=== PATIENT | female | born 1960 | race African-American/Black ===

== ENCOUNTER 2024-12-17 09:05 | Inpatient (IN) | payer OTHER ==
[~2024-12-17] VITALS: Ht 170.2 cm; Wt 108.9 kg
[2024-12-17] VITALS (9 sets, daily range): BP systolic 101–119; BP diastolic 69–74; TEMP 97.9–98.2; O2SAT 92–99
[2024-12-17] MEDS: ALBUTEROL FS 2.5 MG/3 ML VIAL.NEB NEB ONE (09:19)
[2024-12-17] MEDS: IPRATROPIUM NEB FS 0.5 MG/2.5 ML AMPUL.NEB NEB ONE (09:19)
[2024-12-17] MEDS ORDERED: IPRATROPIUM NEB FS 0.5 MG/2.5 ML AMPUL.NEB ONE (09:21)
[2024-12-17] MEDS ORDERED: ALBUTEROL FS 2.5 MG/3 ML VIAL.NEB ONE (09:21)
[2024-12-17] MEDS: IV NS 0.9% 500 ML BAG IV ONE (09:26)
[2024-12-17] MEDS ORDERED: MORPHINE SULFATE INJ 2 MG/ML DISP.SYRIN ONE (09:32)
[2024-12-17 09:37] LABS: PLATELET COUNT (AUTO) 201 K/uL (150-450); RED BLOOD CELL COUNT(AUTO) 5.82 MIL/uL (4.0-5.2); RED CELL DISTRIBUTION WIDTH 18.2 % (11.5-15.0); WHITE BLOOD COUNT (AUTO) 10.4 K/uL (4.3-11.0)
[2024-12-17] MEDS: MORPHINE SULFATE INJ 2 MG/ML DISP.SYRIN IV ONE (09:38)
[2024-12-17 09:48] LABS: CALCIUM, SERUM 9.0 mg/dL (8.5-10.1); CREATININE 1.0 mg/dL (0.6-1.3); SODIUM SERUM 140 mmol/L (136-145); UREA NITROGEN, BLOOD 18 mg/dL (7-18)
[2024-12-17 09:50] LABS: INR 1.06 (0.91-1.10)
[2024-12-17 09:54] LABS: LACTIC ACID 2.7 mmol/L (0.4-2.0)
[2024-12-17 09:59] LABS: ASPARTATE AMINOTRANSFERASE 12 U/L (15-37); NT-PRO BNP 22 pg/mL (0-125); TOTAL PROTEIN, SERUM 7.2 g/dL (6.4-8.2)
[2024-12-17] MEDS ORDERED: IOHEXOL-350 100 ML VIAL IV ONE (10:40)
[2024-12-17] MEDS ORDERED: IV NS 0.9% 250 ML IV ONE (10:40)
[2024-12-17] MEDS ORDERED: BLACK SEED OIL PO (11:30)
[2024-12-17] MEDS ORDERED: METO25TA20 PO (11:30)
[2024-12-17] MEDS ORDERED: CHOL200010 PO (11:30)
[2024-12-17] MEDS ORDERED: ASCO100031 PO (11:30)
[2024-12-17] MEDS ORDERED: LOSARTAN POTASSIUM PO (11:30)
[2024-12-17] MEDS ORDERED: OIL OF OREGANO PO (11:30)
[2024-12-17] MEDS ORDERED: UBRO100T PO (11:30)
[2024-12-17] MEDS ORDERED: LEVE100023 PO (11:30)
[2024-12-17] MEDS ORDERED: LACT1CAP71 PO (11:30)
[2024-12-17] MEDS ORDERED: ALBU18HF2 IH (11:30)
[2024-12-17] MEDS ORDERED: ENOXAPARIN SODIUM 30 MG/0.3 ML DISP.SYRIN ONE (11:51)
[2024-12-17] MEDS ORDERED: ENOXAPARIN SODIUM 80 MG/0.8 ML DISP.SYRIN SQ ONE (11:51)
[2024-12-17] MEDS: ENOXAPARIN SODIUM 100 MG/ML DISP.SYRIN SQ SCH ×2 (11:57→20:29)
[2024-12-17] MEDS ORDERED: MORPHINE SULFATE INJ 2 MG/ML DISP.SYRIN IV PRN (14:00)
[2024-12-17] MEDS ORDERED: Z GUARD REMEDY 4 OZ OINT TP PRN (14:00)
[2024-12-17] MEDS ORDERED: Medication Not On Formulary EA (Ubrogepant (Ubrelvy) 100 MG) PO PRN (14:00)
[2024-12-17] MEDS: HYDROCODONE/APAP 10/325MG TABLET PO PRN (14:49)
[2024-12-17] MEDS: ALBUTEROL FS 2.5 MG/3 ML VIAL.NEB NEB PRN (15:54)
[2024-12-17] MEDS: LEVETIRACETAM (250 MG) 250 MG TABLET PO SCH (16:45)
[2024-12-17] MEDS: ONDANSETRON HCL/PF 4 MG/2 ML VIAL IVP PRN (16:46)
[2024-12-17] MEDS: METOPROLOL TARTRATE 25 MG TABLET PO SCH (16:46)
[2024-12-17] MEDS ORDERED: POTASSIUM CHLORIDE 20 MEQ TAB.PRT.SR PO ONE (20:00)
[2024-12-17] MEDS: POTASSIUM CHLORIDE 20 MEQ TAB.PRT.SR PO ONE (20:29)
[2024-12-18] VITALS: BP 118/67; TEMP 98.2; O2SAT 100
[2024-12-18 04:00] VITALS: BP 104/58; TEMP 98.2; O2SAT 99
[2024-12-18 06:47] LABS: PLATELET COUNT (AUTO) 210 K/uL (150-450); RED BLOOD CELL COUNT(AUTO) 5.32 MIL/uL (4.0-5.2); RED CELL DISTRIBUTION WIDTH 18.0 % (11.5-15.0); WHITE BLOOD COUNT (AUTO) 7.7 K/uL (4.3-11.0)
[2024-12-18] MEDS: MAGNESIUM HYDROXIDE 30 ML UDC PO PRN (07:24)
[2024-12-18 07:29] LABS: CALCIUM, SERUM 9.0 mg/dL (8.5-10.1); CREATININE 0.7 mg/dL (0.6-1.3); PHOSPHORUS 3.0 mg/dL (2.5-4.9); SODIUM SERUM 140.0 mmol/L (136-145); UREA NITROGEN, BLOOD 12.0 mg/dL (7-18)
[2024-12-18 08:45] VITALS: BP 103/62; TEMP 97.7; O2SAT 96
[2024-12-18 16:13] VITALS: BP 105/66; TEMP 98.1; O2SAT 98
[2024-12-18] MEDS: APIXABAN 5 MG TABLET PO SCH (16:38)
[2024-12-18] MEDS: MAG HYDROX/AL HYDROX/SIMETH 30 ML UDC PO PRN (17:36)
[2024-12-18 20:00] VITALS: BP 94/59; TEMP 97.7; O2SAT 97
[2024-12-19] VITALS: BP 97/59; TEMP 97.5; O2SAT 90
[2024-12-19 04:00] VITALS: BP 107/72; TEMP 97.9; O2SAT 95
[2024-12-19 08:00] VITALS: BP 103/71; TEMP 98.2; O2SAT 98
[2024-12-19 11:30] VITALS: BP 122/82; TEMP 98.6; O2SAT 100
[2024-12-19] MEDS: LACTULOSE 10 G/15 ML UDC (PYXIS) PO ONE (13:42)
[2024-12-19] MEDS: DOCUSATE SODIUM 100 MG CAPSULE PO SCH (13:42)
[2024-12-19 16:00] VITALS: BP 114/72; TEMP 98.1; O2SAT 95
[2024-12-19 20:00] VITALS: BP 104/63; TEMP 98.4; O2SAT 100
[2024-12-19] MEDS: NA PHOS,M-B/NA PHOS,DI-BA 1 EA ENEMA RC ONE (21:35)
[2024-12-20] VITALS: BP 100/71; TEMP 97.9; O2SAT 96
[2024-12-20 04:00] VITALS: BP 110/74; TEMP 98.1; O2SAT 95
[2024-12-20 07:30] VITALS: BP 115/82; TEMP 97.9; O2SAT 92
[2024-12-20] MEDS ORDERED: IOHEXOL-300 100 ML VIAL IV ONE (09:00)
[2024-12-20] MEDS ORDERED: IV NS 0.9% 250 ML IV ONE (09:01)
[2024-12-20 16:00] VITALS: BP 115/55; TEMP 97.3; O2SAT 94
[2024-12-20 20:00] VITALS: BP 101/56; TEMP 97.9; O2SAT 95
[2024-12-21 05:10] LABS: CANCER AG, 15-3 11.6 U/mL (0.0-25.0); CARCINOEMBRYONIC ANTIGEN (CEA) 2.0 ng/mL (0.0-4.7)
[2024-12-21 07:34] LABS: PLATELET COUNT (AUTO) 242 K/uL (150-450); RED BLOOD CELL COUNT(AUTO) 5.54 MIL/uL (4.0-5.2); RED CELL DISTRIBUTION WIDTH 18.8 % (11.5-15.0); WHITE BLOOD COUNT (AUTO) 8.1 K/uL (4.3-11.0)
[2024-12-21 09:02] VITALS: BP 112/54; TEMP 97.9; O2SAT 97
[2024-12-21 09:12] LABS: HOMOCYSTEINE, PLASMA 15.0 umol/L (0.0-17.2)
[2024-12-21 16:15] VITALS: BP 109/69; TEMP 98.1; O2SAT 93
[2024-12-21 20:00] VITALS: BP 101/64; TEMP 97.7; O2SAT 96
[2024-12-22 07:30] VITALS: BP 134/75; TEMP 97.9; O2SAT 94
[2024-12-22 10:37] LABS: ABG BASE EXCESS -0.1 mmol/L (-2.0-3.0); ABG OXYGEN SATURATION 92.1 % (94.0-98.0); ABG PCO2 42.1 mmHg (32.0-45.0); ABG PH 7.391 (7.350-7.450); ABG PO2 65.4 mmHg (83.0-108.0); ABG TOTAL HEMOGLOBIN 14.1 G/dL (12.0-16.0); FLOW, BLOOD GAS 0.00 L/min (0.00-30.00); FRACTIONATED INSPIRED OXYGEN 21.0 %; SITE, ABG LEFT RADIAL
[2024-12-22 10:42] LABS: PLATELET COUNT (AUTO) 260 K/uL (150-450); RED BLOOD CELL COUNT(AUTO) 5.55 MIL/uL (4.0-5.2); RED CELL DISTRIBUTION WIDTH 18.6 % (11.5-15.0); WHITE BLOOD COUNT (AUTO) 7.9 K/uL (4.3-11.0)
[2024-12-22 10:48] LABS: CALCIUM, SERUM 8.7 mg/dL (8.5-10.1); CREATININE 0.9 mg/dL (0.6-1.3); SODIUM SERUM 138.0 mmol/L (136-145); UREA NITROGEN, BLOOD 16.0 mg/dL (7-18)
[2024-12-22] MEDS: FUROSEMIDE 40 MG/4 ML VIAL IV ONE (17:12)
[2024-12-22 17:28] LABS: APPEARANCE,URINE CLOUDY (CLEAR); BLOOD, URINE 3+ Ery/uL (NEGATIVE); LEUKOCYTE ESTERASE ,URINE NEGATIVE (NEGATIVE); NITRITE, URINE NEGATIVE (NEGATIVE); UGLUCOSE NEGATIVE (NEGATIVE)
[2024-12-22 17:36] LABS: ADD URINE CULTURE YES; SQUAMOUS EPITHELIAL CELL,UR Few /HPF (None Seen)
[2024-12-22] MEDS: CALAMINE 118 ML BOTTLE TP PRN (17:53)
[2024-12-22 20:00] VITALS: BP 116/74; TEMP 97.7; O2SAT 95
[2024-12-23 07:53] LABS: CALCIUM, SERUM 8.9 mg/dL (8.5-10.1); CREATININE 0.8 mg/dL (0.6-1.3); SODIUM SERUM 139.0 mmol/L (136-145); UREA NITROGEN, BLOOD 16.0 mg/dL (7-18)
[2024-12-23 08:00] VITALS: BP 86/66; TEMP 97.9; O2SAT 100
[2024-12-23] MEDS: ACETAMINOPHEN 325 MG TABLET PO PRN (08:52)
[2024-12-23] MEDS ORDERED: APIX5TAB4 PO (09:17)
[2024-12-23] MEDS ORDERED: HYDR-3972 PO (09:17)
[2024-12-23 16:00] VITALS: BP 123/74; TEMP 97.9; O2SAT 95
[2024-12-23 16:07] LABS: *CARD ANTI-CARDIOLIPIN AB IgG <9 GPL U/mL (0-14); *CARD ANTI-CARDIOLIPIN AB IgM <9 MPL U/mL (0-12)
[2024-12-23 20:00] VITALS: BP 92/52; TEMP 98.2; O2SAT 96
[2024-12-23] MEDS: BENZONATATE 100 MG CAPSULE PO PRN (21:25)
[2024-12-24 00:28] VITALS: O2SAT 99
[2024-12-24 00:38] VITALS: O2SAT 99
[2024-12-24 08:57] VITALS: BP 94/66; TEMP 98.1; O2SAT 96
[2024-12-24 13:09] LABS: *ANTITHROMBIN III AG 92 % (72-124); *THROMBIN TIME 18.3 sec (0.0-23.0); *dRVVT 83.2 sec (0.0-47.0); *dRVVT CONFIRM 1.3 ratio (0.8-1.2); *dRVVT MIX 49.6 sec (0.0-40.4); ANTITHROMBIN III ACTIVITY 119 % (75-135); PROTEIN C ACTIVITY 118 % (73-180)
== END 2024-12-24 12:30 | disposition home health service (06) | DRG 134 ==
LOC: ER 09:08 → TELE 10:42 → MED 12-20 12:14
PROVIDERS: ADMIT Internal Medicine; ATTEND Nurse Practitioner Acute Care
DX: I26.94 Multiple subsegmental thrombotic pulmonary emboli without acute cor pulmonale (principal); J96.01 Acute respiratory failure with hypoxia; E87.20 Acidosis, unspecified; N13.2 Hydronephrosis with renal and ureteral calculous obstruction; I10 Essential (primary) hypertension; J44.9 Chronic obstructive pulmonary disease, unspecified; G40.909 Epilepsy, unspecified, not intractable, without status epilepticus; E66.01 Morbid (severe) obesity due to excess calories; E87.6 Hypokalemia; Z79.01 Long term (current) use of anticoagulants; Z86.711 Personal history of pulmonary embolism; Z86.718 Personal history of other venous thrombosis and embolism; Z87.891 Personal history of nicotine dependence; Z88.0 Allergy status to penicillin; G47.33 Obstructive sleep apnea (adult) (pediatric); Z68.37 Body mass index [BMI] 37.0-37.9, adult; Q62.39 Other obstructive defects of renal pelvis and ureter; J90 Pleural effusion, not elsewhere classified; J98.11 Atelectasis; K44.9 Diaphragmatic hernia without obstruction or gangrene; K42.9 Umbilical hernia without obstruction or gangrene; M51.369 Other intervertebral disc degeneration, lumbar region without mention of lumbar back pain or lower extremity pain; M43.16 Spondylolisthesis, lumbar region
CPT/HCPCS: 36415; 70450-TC; 71045-TC; 72131-TC; 76641-TC; 80048-TC; 80076-TC; 81001; 81240; 81241; 82378; 82803-TC; 83090; 83605-TC; 83735-TC; 83880; 84100-TC; 84484-TC; 85025-TC; 85300; 85301; 85303; 85613; 85670; 85705; 85730-TC; 85732; 86147; 86300; 87040-TC; 87086-TC; 93970-TC; 94760-TC; 94799-TC; 97110-TC; 97116-TC; 97530-TC; 97535-TC; A9562; G0378; J1650; J1938; J2270; J2405; J7040; J7050; Q9967